=== PATIENT | female | born 1970 | race Caucasian/White ===

== ENCOUNTER 2019-12-27 22:15 | Emergency (ER) | payer MEDICAID, OTHER ==
[~2019-12-27] VITALS: Ht 165.1 cm; Wt 78.9 kg
[2019-12-27 22:39] LABS: CLARITY,URINE CLEAR; COLOR,URINE YELLOW
[2019-12-27 22:40] LABS: BILIRUBIN,URINE NEGATIVE (NEGATIVE); GLUCOSE, URINE (UA) NEGATIVE (NEGATIVE); KETONES,URINE TRACE (NEGATIVE); LEUKOCYTE ESTERASE ,URINE NEGATIVE (NEGATIVE); NITRITE,URINE NEGATIVE (NEGATIVE); PROTEIN,URINE NEGATIVE (NEGATIVE); RBC,URINE 25-50 /HPF
[2019-12-27 22:49] LABS: WHITE BLOOD COUNT 9.4 10^3/uL (4.3-11.0)
[2019-12-27 22:49] LABS: AMPHETAMINE SCREEN, URINE NEGATIVE (NEGATIVE); BARBITURATE SCREEN URINE NEGATIVE (NEGATIVE); BENZODIAZEPINES SCREEN URINE NEGATIVE (NEGATIVE); CANNABINOID SCREEN, URINE NEGATIVE (NEGATIVE); COCAINE SCREEN URINE NEGATIVE (NEGATIVE); METHADONE STAT NEGATIVE (NEGATIVE); METHAMPHETAMINE SCREEN URINE S NEGATIVE (NEGATIVE); OPIATE SCREEN URINE NEGATIVE (NEGATIVE); OXYCODONE STAT NEGATIVE (NEGATIVE); PROPOXYPHENE STAT NEGATIVE (NEGATIVE); TRICYCLIC ANTIDEPRESSANTS SCRE NEGATIVE (NEGATIVE)
[2019-12-27 22:50] LABS: BASOPHILS # (AUTO) 0.1 10^3/uL (0.0-0.1); BASOPHILS % (AUTO) 1 % (0-10); EOSINOPHILS # (AUTO) 0.1 10^3/uL (0.0-0.3); EOSINOPHILS % (AUTO) 1 % (0-10); HEMATOCRIT 45 % (35-52); HEMOGLOBIN 15.2 G/DL (11.5-16.0); LYMPHOCYTES # (AUTO) 2.3 X 10^3 (1.0-4.0); LYMPHOCYTES % (AUTO) 24 % (12-44); MEAN CORPUSCULAR HEMOGLOBIN 31 PG (25-34); MEAN CORPUSCULAR HGB CONC 34 G/DL (32-36); MEAN CORPUSCULAR VOLUME 92 FL (80-99); MEAN PLATELET VOLUME 10.2 FL (7.4-10.4); MONOCYTES # (AUTO) 0.7 X 10^3 (0.0-1.0); MONOCYTES % (AUTO) 7 % (0-12); NEUTROPHILS # (AUTO) 6.3 X 10^3 (1.8-7.8); NEUTROPHILS % (AUTO) 66 % (42-75); PLATELET COUNT 263 10^3/uL (130-400); RED CELL DISTRIBUTION WIDTH 13.2 % (10.0-14.5)
[2019-12-27] MEDS ORDERED: NS IV 1000 ML 1,000 ML IV STA (23:04)
[2019-12-27] MEDS ORDERED: ONDANSETRON 4 MG/2 ML (SDV) Z0FRAN IVP STA (23:04)
[2019-12-27] MEDS ORDERED: KETOROLAC 30 MG/ML VIAL IVP STA (23:04)
[2019-12-27 23:05] LABS: ALANINE AMINOTRANSFERASE 14 U/L (0-55); ALBUMIN 4.6 GM/DL (3.2-4.5); ALKALINE PHOSPHATASE 115 U/L (40-136); BILIRUBIN,TOTAL 0.4 MG/DL (0.1-1.0); BUN/CREATININE RATIO 16; CALCIUM 9.8 MG/DL (8.5-10.1); CARBON DIOXIDE 28 MMOL/L (21-32); CHLORIDE 105 MMOL/L (98-107); CREATININE SERUM 1.08 MG/DL (0.60-1.30); GFR ESTIMATED 54; GLUCOSE 112 MG/DL (70-105); LIPASE 38 U/L (8-78); POTASSIUM 4.6 MMOL/L (3.6-5.0); SODIUM 143 MMOL/L (135-145); TOTAL PROTEIN 7.6 GM/DL (6.4-8.2)
--- NOTE | 2019-12-27 23:12 | ED General ---
General Chief Complaint: Back Problems Stated Complaint: LOWER BACK PAIN Nursing Triage Note: PT. C/O RIGHT LOWER BACK FLANK PAIN. SHE REPORTS HAVING VAGINAL PRESSURE. PT. STATED SHE VOMITED OVER THE WEEKEND. PT. STATED SHE WAS SICK, FELL AND PASSED OUT FROM PAIN AND HIT HER HEAD AT 2044 TODAY. Nursing Sepsis Screen: No Definite Risk Source of Information: Patient History of Present Illness Date Seen by Provider: Dec 27, 2019 Time Seen by Provider: 22:47 Initial Comments 49-year-old female presenting with complaints of vaginal pressure and right flank pain. She has had this since the weekend but it was more severe tonight. The pain was so severe that she passed out around 8:45 PM. She had noticed blood when she went to the bathroom to urinate this evening. She does have a history of kidney stones and thinks that some of this pain may be related to that. She was concerned that she may have had a urinary tract infection as well. She denies any fever or chills. She was feeling nauseated along with the pain. She has had no diarrhea. She has no cough or congestion. Allergies and Home Medications Allergies Coded Allergies: No Known Drug Allergies (Unverified , 12/27/19) Home Medications Hydrocodone/Acetaminophen 1 Each Tablet, 1 TAB PO Q6H PRN for PAIN-SEVERE (8-10) Prescribed by: KATHYA JASMINE on 12/28/19 0048 Tamsulosin HCl 0.4 Mg Cap, 0.4 MG PO DAILY Prescribed by: KATHYA JASMINE on 12/28/19 0047 Patient Home Medication List Home Medication List Reviewed: Yes Review of Systems Review of Systems Constitutional: No chills, No diaphoresis, No fever, No malaise EENTM: No ear discharge, No blurred vision, No vision loss, No mouth pain, No epistaxis, No nose congestion Respiratory: No cough Cardiovascular: No chest pain Gastrointestinal: abdominal pain (right flank pain); No diarrhea; nausea Genitourinary: No dysuria; hematuria (and vaginal pressure and hematuria) Musculoskeletal: back pain (and right flank pain tonight that was very severe and has been off and on since this weekend) Skin: no symptoms reported Psychiatric/Neurological: Anxiety, Headache (mild frontal headache since passing out tonight) Past Hqlbamt-Mqjdvx-Hwjmjm Hx Past Med/Social Hx: Reviewed Nursing Past Med/Soc Hx Patient Social History Recent Foreign Travel: No Contact w/Someone Who Travel: No Recent Infectious Disease Expo: No Recent Hopitalizations: No Physical Abuse: No Sexual Abuse: No Mistreated: No Fear: No Seasonal Allergies Seasonal Allergies: No Past Medical History Surgeries: Yes Hysterectomy Respiratory: No Cardiac: No 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 oz. kg; 28.00 BMI Method: General Appearance: WD/WN, Moderate Distress HEENT: PERRL/EOMI, Normal ENT Inspection, Pharynx Normal Neck: Full Range of Motion, Normal Inspection, Non Tender, Supple Respiratory: Chest Non Tender, Lungs Clear, Normal Breath Sounds, No Accessory Muscle Use, No Respiratory Distress Cardiovascular: Regular Rate, Rhythm, Normal Peripheral Pulses Gastrointestinal: Normal Bowel Sounds, No Pulsatile Mass, Non Tender, Soft Back: No Vertebral Tenderness, CVA Tenderness (R) Extremity: Normal Capillary Refill, Normal Inspection, Normal Range of Motion, No Pedal Edema Neurologic/Psychiatric: Alert, Oriented x3, No Motor/Sensory Deficits, Normal M ood/Affect, medical office assistant II-XII Norm as Tested Skin: Normal Color, Warm/Dry Progress/Results/Core Measures Suspected Sepsis Recent Fever Within 48 Hours: No Infection Criteria Present: None New/Unexplained Altered Menta: No Sepsis Screen: No Definite Risk SIRS Temperature: Pulse: 110 Respiratory Rate: 20 Laboratory Tests 12/27/19 22:35: White Blood Count 9.4 Blood Pressure 119 /78 Mean: 92 Laboratory Tests 12/27/19 22:35: Creatinine 1.08, Platelet Count 263, Total Bilirubin 0.4 Results/Orders Lab Results Laboratory Tests Test 12/27/19 22:20 12/27/19 22:35 Range/Units Urine Color YELLOW Urine Clarity CLEAR Urine pH 6.0 5-9 Urine Specific Carver 1.025 H 1.016-1.022 Urine Protein NEGATIVE NEGATIVE Urine Glucose (UA) NEGATIVE NEGATIVE Urine Ketones TRACE H NEGATIVE Urine Nitrite NEGATIVE NEGATIVE Urine Bilirubin NEGATIVE NEGATIVE Urine Urobilinogen 1.0 < = 1.0 MG/DL Urine Leukocyte Esterase NEGATIVE NEGATIVE Urine RBC (Auto) 3+ H NEGATIVE Urine RBC 25-50 H /HPF Urine WBC NONE /HPF Urine Squamous Epithelial Cells 2-5 /HPF Urine Crystals NONE /LPF Urine Bacteria NONE /HPF Urine Casts NONE /LPF Urine Mucus SMALL H /LPF Urine Culture Indicated NO Urine Opiates Screen NEGATIVE NEGATIVE Urine Oxycodone Screen NEGATIVE NEGATIVE Urine Methadone Screen NEGATIVE NEGATIVE Urine Propoxyphene Screen NEGATIVE NEGATIVE Urine Barbiturates Screen NEGATIVE NEGATIVE Ur Tricyclic Antidepressants Screen NEGATIVE NEGATIVE Urine Phencyclidine Screen NEGATIVE NEGATIVE Urine Amphetamines Screen NEGATIVE NEGATIVE Urine Methamphetamines Screen NEGATIVE NEGATIVE Urine Benzodiazepines Screen NEGATIVE NEGATIVE Urine Cocaine Screen NEGATIVE NEGATIVE Urine Cannabinoids Screen NEGATIVE NEGATIVE White Blood Count 9.4 4.3-11.0 10^3/uL Red Blood Count 4.93 4.35-5.85 10^6/uL Hemoglobin 15.2 11.5-16.0 G/DL Hematocrit 45 35-52 % Mean Corpuscular Volume 92 80-99 FL Mean Corpuscular Hemoglobin 31 25-34 PG Mean Corpuscular Hemoglobin Concent 34 32-36 G/DL Red Cell Distribution Width 13.2 10.0-14.5 % Platelet Count 263 130-400 10^3/uL Mean Platelet Volume 10.2 7.4-10.4 FL Neutrophils (%) (Auto) 66 42-75 % Lymphocytes (%) (Auto) 24 12-44 % Monocytes (%) (Auto) 7 0-12 % Eosinophils (%) (Auto) 1 0-10 % Basophils (%) (Auto) 1 0-10 % Neutrophils # (Auto) 6.3 1.8-7.8 X 10^3 Lymphocytes # (Auto) 2.3 1.0-4.0 X 10^3 Monocytes # (Auto) 0.7 0.0-1.0 X 10^3 Eosinophils # (Auto) 0.1 0.0-0.3 10^3/uL Basophils # (Auto) 0.1 0.0-0.1 10^3/uL Sodium Level 143 135-145 MMOL/L Potassium Level 4.6 3.6-5.0 MMOL/L Chloride Level 105 98-107 MMOL/L Carbon Dioxide Level 28 21-32 MMOL/L Anion Gap 10 5-14 MMOL/L Blood Urea Nitrogen 17 7-18 MG/DL Creatinine 1.08 0.60-1.30 MG/DL Estimat Glomerular Filtration Rate 54 BUN/Creatinine Ratio 16 Glucose Level 112 H 70-105 MG/DL Calcium Level 9.8 8.5-10.1 MG/DL Corrected Calcium 8.5-10.1 MG/DL Total Bilirubin 0.4 0.1-1.0 MG/DL Aspartate Amino Transf (AST/SGOT) 19 5-34 U/L Alanine Aminotransferase (ALT/SGPT) 14 0-55 U/L Alkaline Phosphatase 115 40-136 U/L Total Protein 7.6 6.4-8.2 GM/DL Albumin 4.6 H 3.2-4.5 GM/DL Lipase 38 8-78 U/L Serum Alcohol < 10 <10 MG/DL My Orders Orders - KATHYA JASMINE MD Ua Culture If Indicated (12/27/19 22:24) Comprehensive Metabolic Panel (12/27/19 22:25) Lipase (12/27/19 22:25) Ed Iv/Invasive Line Start (12/27/19 22:25) Cbc With Automated Diff (12/27/19 22:25) Drug Screen Stat (Urine) (12/27/19 22:25) Alcohol (12/27/19 22:25) Ns Iv 1000 Ml (Sodium Chloride 0.9%) (12/27/19 23:04) Ketorolac Injection (Toradol Injection) (12/27/19 23:04) Ondansetron Injection (Zofran Injectio (12/27/19 23:04) Ct Head Wo (12/27/19 23:04) Ct Abd/Pelvis Wo(Kidney Stone) (12/27/19 23:04) Tamsulosin Capsule (Flomax Capsule) (12/27/19 23:42) Fentanyl Injection (Sublimaze Injection (12/27/19 23:42) Rx-Hydrocodone/Apap 5-325 Mg (Rx-Vicodin (12/28/19 01:00) Strain Urine (12/28/19 00:49) Vital Signs/I&O 12/27/19 12/28/19 22:20 00:44 Temp 36.0 36.4 Pulse 110 84 Resp 20 16 B/P (MAP) 119/78 (92) 118/65 Pulse Ox 95 97 O2 Delivery Room Air Room Air Capillary Refill : Less Than 3 Seconds Blood Pressure Mean: 92 Progress Note #1: Progress Note Obtain labs and urine. Check a CT scan of her head to look for signs of intracranial bleed or skull fracture and abdomen and pelvis to look for kidney stones. Give IV fluids for hydration, Toradol for pain, Zofran for nausea Progress Note #2: Progress Note Labs show no acute significant abnormality on CBC or chemistry. Her urinalysis showed elevated specific gravity of 1.025. She did have blood in her urine consistent with kidney stones. There was no sign of infection. Patient reports her symptoms were improved after treatment in the ED, but she was starting to have pain again and so dose of fentanyl was given. Awaiting CT scan reports of head and abdomen pelvis Progress Note #3: Progress Note CT scan of abdomen and pelvis shows bilateral kidney stones but nothing in the ureters. The CT head shows no acute significant abnormality. Patient's pain continues to be improved and she has tolerated oral intake here in the ED. Will discharge on hydrocodone and Flomax. Counseled on follow-up and return precautions. Diagnostic Imaging Diagonstic Imaging: CT Plain Films/CT/US/NM/MRI: head Comments No acute intracranial pathology seen Read by Dr. Daniel Post MD at 2334 and faxed at [phone] Reviewed: Reviewed Night [facility] Study Diagonstic Imaging: CT Plain Films/CT/US/NM/MRI: abdomen, pelvis Comments No acute findings. Nonobstructive bilateral nephrolithiasis. Read by Dr. Daniel Post MD at 2334 and faxed at [phone] Departure Impression Primary Impression: Renal colic on right side Additional Impressions: Bilateral kidney stones Syncope Qualified Codes: R55 - Syncope and collapse Disposition: HOME, SELF-CARE Condition: Improved Departure-Patient Inst. Decision time for Depature: 00:36 Referrals: LATIA CARRION MD [facility] Patient Instructions: Kidney Stones (DC), Renal Colic (DC), Syncope (Fainting) (DC), Vasovagal Response (DC), Kidney Stone Diet, How to Strain Your Urine Add. Discharge Instructions: Stay well hydrated and drink plenty of water. Take the Flomax to help make it easier to pass kidney stones. Use the pain medicine to help control recurrent pain. Follow up with Urology for continued problems with kidney stones. Strain your urine to see when you pass a stone All discharge instructions reviewed with patient and/or family. Voiced understanding. Scripts Hydrocodone/Acetaminophen (Hydrocodone/Acetaminophen 5 MG/325 MG TAB) 1 Each Tablet 1 TAB PO Q6H PRN for PAIN-SEVERE (8-10) MDD 10 TABS for 3 Days, #12 TAB 0 Refills Prov: KATHYA JASMINE MD 12/28/19 Tamsulosin HCl (Flomax) 0.4 Mg Cap 0.4 MG PO DAILY for renal colic for 7 Days, #7 CAP 0 Refills Prov: KATHYA JASMINE MD 12/28/19 KATHYA JASMINE MD Dec 27, 2019 23:12
[2019-12-27] MEDS ORDERED: fentaNYL INJECTION 100 MCG/2 ML AMP IVP STA (23:42)
[2019-12-27] MEDS ORDERED: TAMSULOSIN 0.4 MG (FLOMAX) CAP PO STA (23:42)
--- NOTE | 2019-12-28 00:11 | NUR ---
PT. REPORTED HER PAIN HAS IMPROVED.
[2019-12-28 00:44] VITALS: BP 118/65
[2019-12-28] MEDS ORDERED: HYDR-4226 PO (00:47)
[2019-12-28] MEDS ORDERED: TMSL.4C PO (00:47)
--- NOTE | 2019-12-28 00:50 | NUR ---
PT. WAS GIVEN A STRAINER TO TAKE HOME.
[2019-12-28] MEDS ORDERED: RX-HYDROCODONE/APAP 5/325 MG #4 TAB PK PO PRN (01:00)
--- NOTE | 2019-12-28 06:21 | Diagnostic Imaging Report ---
PROCEDURE: CT head without contrast. TECHNIQUE: Multiple contiguous axial images were obtained through the brain without the use of intravenous contrast. Auto Exposure Controls were utilized during the CT exam to meet ALARA standards for radiation dose reduction. INDICATION: Syncope The ventricles are normal in size, shape and position. There are no masses or hemorrhages. There are no extra-axial fluid collections. IMPRESSION: Negative CT head I agree with preliminary interpretation. Dictated by: Dictated on workstation # [id number]
--- NOTE | 2019-12-28 07:05 | Diagnostic Imaging Report ---
PROCEDURE: CT urinary tract, rule out kidney stone. TECHNIQUE: Multiple contiguous axial images were obtained through the abdomen and pelvis without the use of intravenous contrast. Auto Exposure Controls were utilized during the CT exam to meet ALARA standards for radiation dose reduction. INDICATION: Right low back and flank pain. Vaginal pressure. Vomiting over the weekend. EXAMINATION: CT of the abdomen and pelvis without contrast dated 12/27/2019. FINDINGS: The visualized lung bases are clear. There is no acute osseous abnormality. The nonopacified abdominal viscera limited due to the lack of IV contrast. However, no acute abnormality is appreciated within the liver, spleen, gallbladder, adrenal glands or pancreas. Very small pericardial effusion is noted. There is a likely small hiatal hernia. There are multiple nonobstructive stones in both kidneys. There are no ureteral stones on either side. No hydronephrosis. There is a nonspecific low density lesion inferior pole of the right kidney poorly characterized without contrast and could be better characterized sonographically with postcontrast imaging as clinically indicated. There is no ascites. No free air. Findings of mild constipation noted. Several minimally prominent but nonenlarged lymph nodes in the right lower quadrant are noted and may be normal for patient. Mesenteric adenitis could cause a similar appearance and clinical correlation with symptoms recommended. This is not mentioned by the preliminary report but is not considered emergent finding. No free fluid seen in the pelvis. IMPRESSION: 1. Minimally prominent lymph nodes in the right lower quadrant please see above discussion. Remaining examination is unremarkable other than bilateral nonobstructive stones and a low-density lesion in the right kidney. See above discussion and recommendations. Dictated by: Dictated on workstation # [id number]
--- OUTSIDE RECORDS SUMMARY | 2019-12-30 00:28 | XMS REPORT | Continuity of Care Document ---
Author Organization Unknown Address Unknown Phone Unavailable Allergies Active Description Code Type Severity Reaction Onset Reported/Identified Relationship to Patient Clinical Status Yes No Known Drug Allergies [id number] Drug Allergy Unknown N/A 12/27/2019 Medications There is no data. Problems There is no data. Procedures There is no data. Results Test Result Range LIPID PANEL - 02/10/19 12:00 CHOLESTEROL, TOTAL 197 mg/dL <200 HDL CHOLESTEROL 40 mg/dL >50 TRIGLYCERIDES 118 mg/dL <150 LDL-CHOLESTEROL 134 mg/dL (calc) NRG CHOL/HDLC RATIO 4.9 (calc) <5.0 NON HDL CHOLESTEROL 157 mg/dL (calc) <13 0 CMP - 02/10/19 12:00 GLUCOSE 83 mg/dL 65-99 UREA NITROGEN (BUN) 13 mg/dL 7-25 CREATININE 0.68 mg/dL 0.50-1.10 eGFR NON-AFR. [place] 105 mL/min/1.73m2 > OR = 60 eGFR 122 mL/min/1.73m2 > OR = 60 BUN/CREATININE RATIO NOT APPLICABLE (calc) 6-22 SODIUM 143 mmol/L 135-146 POTASSIUM 4.0 mmol/L 3.5-5.3 CHLORIDE 108 mmol/L 98-110 CARBON DIOXIDE 29 mmol/L 20-32 CALCIUM 9.1 mg/dL 8.6-10.2 PROTEIN, TOTAL 6.6 g/dL 6.1-8.1 ALBUMIN 4.1 g/dL 3.6-5.1 GLOBULIN 2.5 g/dL (calc) 1.9-3.7 ALBUMIN/GLOBULIN RATIO 1.6 (calc) 1.0-2. 5 BILIRUBIN, TOTAL 0.6 mg/dL 0.2-1.2 ALKALINE PHOSPHATASE 101 U/L 33-115 AST 28 U/L 10-35 ALT 37 U/L 6-29 Complete urinalysis with reflex to cultu re - 12/27/19 22:20 Urine color determination YELLOW NRG Urine clarity determination CLEAR NR G Urine pH measurement by test strip 6.0 5-9 Specific gravity of urine by test strip 1.025 1.016-1.022 Urine protein assay by test strip, semi-quantitative NEGATIVE NEGATIVE Urine glucose detection by automated test strip NE GATIVE NEGATIVE Erythrocytes detection in urine sediment by light micr oscopy 3+ NEGATIVE Urine ketones detection by automated test strip TR MARK NEGATIVE Urine nitrite detection by test strip NEGATIVE NEGATIVE Urine total bilirubin detection by test strip NEGA TIVE NEGATIVE Urine urobilinogen measurement by automated test strip (mass/volume) 1.0 mg/dL < = 1.0 Urine leukocyte esterase detection by dipstick NEG ATIVE NEGATIVE Automated urine sediment erythrocyte cou nt by microscopy (number/high power field) [HPF] NRG Automated urine sediment leukocyte count by microscopy (number/high power field) NONE NRG Bacteria detection in urine sediment by light microsco py NONE NRG Squamous epithelial cells detection in u rine sediment by light microscopy 2-5 NRG Crystals detection in urine sediment by light microsco py NONE NRG Casts detection in urine sediment by light microscopy NONE NRG Mucus detection in urine sediment by light microscopy SMALL NRG Complete urinalysis with reflex to culture NO NRG Urine drug screening test - 12/27/19 22: 20 Urine phencyclidine detection by screening method NEGATIVE NEGATIVE Urine benzodiazepines detection by screening method NEGATIVE NEGATIVE Urine cocaine detection NEGATIVE NEGATI VE Urine amphetamines detection by screening method N EGATIVE NEGATIVE Urine methamphetamine detection by screening method NEGATIVE NEGATIVE Urine cannabinoids detection by screening method N EGATIVE NEGATIVE Urine opiates detection by screening method NEGATI VE NEGATIVE Urine barbiturates detection NEGATIVE N EGATIVE Screening urine tricyclic antidepressants detection NEGATIVE NEGATIVE Urine methadone detection by screening method NEGA TIVE NEGATIVE Urine oxycodone detection NEGATIVE NEGA TIVE Urine propoxyphene detection NEGATIVE N EGATIVE Complete blood count (CBC) with automate d white blood cell (WBC) differential - 12/27/19 22:35 Blood leukocytes automated count (number/volume) 9.4 10*3/uL 4.3-11.0 Blood erythrocytes automated count (number/volume) 4.93 10*6/uL 4.35-5.85 Venous blood hemoglobin measurement (mass/volume) 15.2 g/dL 11.5-16.0 Blood hematocrit (volume fraction) 45 % 35-52 Automated erythrocyte mean corpuscular volume 92 [ foz_us] 80-99 Automated erythrocyte mean corpuscular h emoglobin (mass per erythrocyte) 31 pg 25-34 Automated erythrocyte mean corpuscular h emoglobin concentration measurement (mass/volume) 34 g/dL 32-36 Automated erythrocyte distribution width ratio 13. 2 % 10.0- 14.5 Automated blood platelet count (count/volume) 263 10*3/uL 130-400 Automated blood platelet mean volume measurement 10.2 [foz_us] 7.4-10.4 Automated blood neutrophils/100 leukocytes 66 % 42-75 Automated blood lymphocytes/100 leukocytes 24 % 12-44 Blood monocytes/100 leukocytes 7 % 0-12 Automated blood eosinophils/100 leukocytes 1 % 0-10 Automated blood basophils/100 leukocytes 1 % 0-10 Blood neutrophils automated count (number/volume) 6.3 10*3 1.8-7.8 Blood lymphocytes automated count (number/volume) 2.3 10*3 1.0-4.0 Blood monocytes automated count (number/volume) 0. 7 10*3 0.0-1.0 Automated eosinophil count 0.1 10*3/uL 0 .0-0.3 Automated blood basophil count (count/volume) 0.1 10*3/uL 0.0-0.1 Comprehensive metabolic panel - 12/27/19 22:35 Serum or plasma sodium measurement (moles/volume) 143 mmol/L 135-145 Serum or plasma potassium measurement (moles/volume) 4.6 mmol/L 3.6-5.0 Serum or plasma chloride measurement (moles/volume) 105 mmol/L 98-107 Carbon dioxide 28 mmol/L 21-32 Serum or plasma anion gap determination (moles/volume) 10 mmol/L 5-14 Serum or plasma urea nitrogen measurement (mass/volume ) 17 mg/dL 7-18 Serum or plasma creatinine measurement (mass/volume) 1.08 mg/dL 0.60-1.30 Serum or plasma urea nitrogen/creatinine mass ratio 16 NRG Serum or plasma creatinine measurement w ith calculation of estimated glomerular filtration rate 54 NRG Serum or plasma glucose measurement (mass/volume) 112 mg/dL 70-105 Serum or plasma calcium measurement (mass/volume) 9.8 mg/dL 8.5-10.1 Serum or plasma total bilirubin measurement (mass/volu me) 0.4 mg/dL 0.1-1.0 Serum or plasma alkaline phosphatase leonardo surement (enzymatic activity/volume) 115 U/L 40-136 Serum or plasma aspartate aminotransfera se measurement (enzymatic activity/volume) 19 U/L 5-34 Serum or plasma alanine aminotransferase measurement (enzymatic activity/volume) 14 U/L 0-55 Serum or plasma protein measurement (mass/volume) 7.6 g/dL 6.4-8.2 Serum or plasma albumin measurement (mass/volume) 4.6 g/dL 3.2-4.5 Lipase - 12/27/19 22:35 Lipase 38 U/L 8-78 Serum or plasma ethanol measurement (mas s/volume) - 12/27/19 22:35 Serum or plasma ethanol measurement (mass/volume) < mg/dL <10 Encounters ACCT No. Visit Date/Time Discharge Status Pt. Type Provider Facility Loc./Unit Complaint [id number] 06/22/2019 13:40:00 06/22/2019 23:59: 59 CLS Outpatient FELA PHILLIPS [facility] [id number] 02/10/2019 11:00:00 Document Registration [id number] 12/27/2019 22:17:00 020 00:54:00 DIS Emergency MITALI COLVIN, KATHYA Maloney [facility] ER FS LOWER BACK PAIN
--- OUTSIDE RECORDS SUMMARY | 2019-12-30 00:28 | XMS REPORT ---
Author Author Juliet SPARKS Organization [facility] Address [address] [place] [address] Care Team Providers Care Data Processing Specialist Name Role Phone DEBORAH SPARKS Unavailable PROBLEMS Unknown Problems ALLERGIES No Known Allergies ENCOUNTERS Encounter Location Date Diagnosis [facility] [address] [facility] [id number] [place], [place] [id number] Jul, Dental examination Z01.20 IMMUNIZATIONS No Known Immunizations SOCIAL HISTORY Never Assessed REASON FOR VISIT denton PLAN OF CARE Activity Details Follow Up prn Reason:PRASAD VITAL SIGNS Blood pressure systolic 122 mmHg 2017-08-02 Blood pressure diastolic 86 mmHg 2017-08-02 MEDICATIONS No Known Medications RESULTS No Results PROCEDURES Procedure Date Ordered Result Body Site LTD ORAL EVALUATION - PROBLEM FOCUS Aug 02, 2017 INTRAORL-PERIAPICAL 1 FILM [id number] Aug 12, 2017 BITEWING - SINGLE FILM Aug 02, 2017 INTRAORL-PERIAPICAL EA ADD FILM Aug 02, 2017 INSTRUCTIONS MEDICATIONS ADMINISTERED No Known Medications MEDICAL (GENERAL) HISTORY Type Description Date Medical History asthma
== END 2019-12-28 00:54 | disposition home or self-care (01) ==
LOC: ER FS 22:17
DX: N20.0 Calculus of kidney (principal); R55 Syncope and collapse; Z90.710 Acquired absence of both cervix and uterus
CPT/HCPCS: 36415; 70450; 74176; 80053; 80306; 80320; 81000; 83690; 85025

== ENCOUNTER 2020-04-25 16:45 | Emergency (ER) | payer OTHER ==
[~2020-04-25] VITALS: Ht 165.1 cm; Wt 78.9 kg
[~2020-04-25 16:45] MED LIST: HYDR-4226 PO; TMSL.4C PO
[2020-04-25] MEDS ORDERED: NS IV 1000 ML 1,000 ML IV SCH (17:15)
[2020-04-25] MEDS ORDERED: KETOROLAC 30 MG/ML VIAL IVP ONE (17:15)
[2020-04-25] MEDS ORDERED: ONDANSETRON 4 MG/2 ML (SDV) Z0FRAN IVP ONE (17:15)
[2020-04-25] MEDS ORDERED: morphine INJ 10 MG/ML 1ML (SYR OR VIAL) IVP STA (17:15)
[2020-04-25 17:35] LABS: CLARITY,URINE CLOUDY; COLOR,URINE DARK BROWN; GLUCOSE, URINE (UA) TRACE (NEGATIVE); KETONES,URINE TRACE (NEGATIVE); NITRITE,URINE NEGATIVE (NEGATIVE); PROTEIN,URINE 1+ (NEGATIVE)
[2020-04-25 17:36] LABS: BACTERIA,URINE FEW /HPF; BILIRUBIN,URINE 1+ (NEGATIVE); LEUKOCYTE ESTERASE ,URINE NEGATIVE (NEGATIVE); RBC,URINE TNTC /HPF
[2020-04-25 17:37] LABS: BASOPHILS % (AUTO) 1 % (0-10); EOSINOPHILS # (AUTO) 0.2 10^3/uL (0.0-0.3); EOSINOPHILS % (AUTO) 2 % (0-10); HEMATOCRIT 44 % (35-52); HEMOGLOBIN 14.7 G/DL (11.5-16.0); LYMPHOCYTES # (AUTO) 1.8 X 10^3 (1.0-4.0); LYMPHOCYTES % (AUTO) 20 % (12-44); MEAN CORPUSCULAR HEMOGLOBIN 31 PG (25-34); MEAN CORPUSCULAR HGB CONC 34 G/DL (32-36); MEAN CORPUSCULAR VOLUME 91 FL (80-99); MEAN PLATELET VOLUME 10.4 FL (7.4-10.4); MONOCYTES # (AUTO) 0.6 X 10^3 (0.0-1.0); MONOCYTES % (AUTO) 7 % (0-12); NEUTROPHILS # (AUTO) 6.5 X 10^3 (1.8-7.8); NEUTROPHILS % (AUTO) 71 % (42-75); PLATELET COUNT 248 10^3/uL (130-400); RED CELL DISTRIBUTION WIDTH 13.2 % (10.0-14.5); WHITE BLOOD COUNT 9.2 10^3/uL (4.3-11.0)
[2020-04-25 17:38] LABS: BASOPHILS # (AUTO) 0.1 10^3/uL (0.0-0.1)
--- NOTE | 2020-04-25 17:38 | ED General ---
General Chief Complaint: Abdominal/GI Problems Stated Complaint: FEMALE REPRODUCTIVE PAIN,BLOOD IN URINE History of Present Illness Date Seen by Provider: Apr 25, 2020 Time Seen by Provider: 17:35 Initial Comments Patient presenting to emergency department for evaluation of left lower abdominal pain that radiates into her pelvic region and associated with nausea. She says that her pain started on Wednesday which would be 4 days ago now and she was seen in [place] and then they transferred her via private vehicle to [facility] and she had a workup done there which revealed a 5 mm left distal ureter calculus and was discharged on [place] and Flomax. Unfortunately her pain has returned and she says it is worse. She called [facility] and they told her to come to the closest emergency room. She appears uncomfortable but is nontoxic. Allergies and Home Medications Allergies Coded Allergies: No Known Drug Allergies (Unverified , 12/27/19) Home Medications Hydrocodone/Acetaminophen 1 Each Tablet, 1 TAB PO Q6H PRN for PAIN-SEVERE (8-10) Prescribed by: KATHYA JASMINE on 12/28/19 0048 Tamsulosin HCl 0.4 Mg Cap, 0.4 MG PO DAILY Prescribed by: KATHYA JASMINE on 12/28/19 0047 Patient Home Medication List Home Medication List Reviewed: Yes Review of Systems Review of Systems Constitutional: no symptoms reported EENTM: no symptoms reported Respiratory: no symptoms reported Cardiovascular: no symptoms reported Gastrointestinal: abdominal pain, nausea Genitourinary: hematuria Musculoskeletal: no symptoms reported Skin: no symptoms reported Psychiatric/Neurological: No Symptoms Reported All Other Systems Reviewed Negative Unless Noted: Yes Past Kgqunzw-Obboxt-Kmwrxs Hx Patient Social History Alcohol Use: Denies Use Recreational Drug Use: No Smoking Status: Unknown if Ever Smoked 2nd Hand Smoke Exposure: No Recent Foreign Travel: No Contact w/Someone Who Travel: No Recent Hopitalizations: No Physical Abuse: No Sexual Abuse: No Mistreated: No Fear: No Seasonal Allergies Seasonal Allergies: No Past Medical History Surgeries: Yes Hysterectomy Respiratory: No Cardiac: No 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 oz. kg; 28.00 BMI Method: General Appearance: No Apparent Distress, WD/WN, Anxious HEENT: PERRL/EOMI Neck: Supple Respiratory: No Respiratory Distress Cardiovascular: Regular Rate, Rhythm Gastrointestinal: Soft, Tenderness (diffuse lower abdomen) Back: Normal Inspection Extremity: Normal Capillary Refill Neurologic/Psychiatric: Alert, Oriented x3 Skin: Warm/Dry Progress/Results/Core Measures Suspected Sepsis SIRS Temperature: Pulse: Respiratory Rate: Laboratory Tests 04/25/20 17:25: White Blood Count 9.2 Blood Pressure / Mean: Laboratory Tests 04/25/20 17:25: Platelet Count 248 Results/Orders Lab Results Laboratory Tests Test 04/25/20 17:13 04/25/20 17:25 Range/Units Urine Color DARK BROWN Urine Clarity CLOUDY Urine pH 5.0 5-9 Urine Specific [place] >=1.030 1.016-1.022 Urine Protein 1+ H NEGATIVE Urine Glucose (UA) TRACE H NEGATIVE Urine Ketones TRACE H NEGATIVE Urine Nitrite NEGATIVE NEGATIVE Urine Bilirubin 1+ H NEGATIVE Urine Urobilinogen 2.0 < = 1.0 MG/DL Urine Leukocyte Esterase NEGATIVE NEGATIVE Urine RBC (Auto) 3+ H NEGATIVE Urine RBC TNTC H /HPF Urine WBC NONE /HPF Urine Squamous Epithelial Cells 5-10 /HPF Urine Renal Epithelial Cells NONE /HPF Urine Crystals NONE /LPF Urine Bacteria FEW H /HPF Urine Casts NONE /LPF Urine Mucus NEGATIVE /LPF Urine Culture Indicated YES Urine Test NEGATIVE NEGATIVE White Blood Count 9.2 4.3-11.0 10^3/uL Red Blood Count 4.77 4.35-5.85 10^6/uL Hemoglobin 14.7 11.5-16.0 G/DL Hematocrit 44 35-52 % Mean Corpuscular Volume 91 80-99 FL Mean Corpuscular Hemoglobin 31 25-34 PG Mean Corpuscular Hemoglobin Concent 34 32-36 G/DL Red Cell Distribution Width 13.2 10.0-14.5 % Platelet Count 248 130-400 10^3/uL Mean Platelet Volume 10.4 7.4-10.4 FL Neutrophils (%) (Auto) 71 42-75 % Lymphocytes (%) (Auto) 20 12-44 % Monocytes (%) (Auto) 7 0-12 % Eosinophils (%) (Auto) 2 0-10 % Basophils (%) (Auto) 1 0-10 % Neutrophils # (Auto) 6.5 1.8-7.8 X 10^3 Lymphocytes # (Auto) 1.8 1.0-4.0 X 10^3 Monocytes # (Auto) 0.6 0.0-1.0 X 10^3 Eosinophils # (Auto) 0.2 0.0-0.3 10^3/uL Basophils # (Auto) 0.1 0.0-0.1 10^3/uL My Orders Orders - SKIP WHITMAN DO Cbc With Automated Diff (04/25/20 17:15) Comprehensive Metabolic Panel (04/25/20 17:15) Ua Culture If Indicated (04/25/20 17:15) Hcg,Qualitative Urine (04/25/20 17:15) Iv/Invasive Line Insertion .IV start (04/25/20 17:15) Ns Iv 1000 Ml (Sodium Chloride 0.9%) (04/25/20 17:15) Ondansetron Injection (Zofran Injectio (04/25/20 17:15) Ketorolac Injection (Toradol Injection) (04/25/20 17:15) Morphine Injection (Morphine Injection (04/25/20 17:15) Ct Abdomen/Pelvis Wo (04/25/20 17:15) Urine Culture (04/25/20 17:13) Medications Given in ED Current Medications Medications Dose Ordered Sig/Temitope Route Start Time Stop Time Status Last Admin Dose Admin Ketorolac Tromethamine 15 mg ONCE ONCE IVP 04/25/20 17:15 04/25/20 17:18 DC 04/25/20 17:39 15 MG Ondansetron HCl 4 mg ONCE ONCE IVP 04/25/20 17:15 04/25/20 17:18 DC 04/25/20 17:39 4 MG Vital Signs/I&O Capillary Refill : Progress Note : Progress Note Patient has failed outpatient treatment for her kidney stone and I spoke to our urologist on-call here Dr. Castrejon and he is leaving town tomorrow morning and would not be able to take care of her at [place]. I then asked the patient where she would like to go for her intractable pain and she may need urologic consultation and intervention and she said she would like to go back to [facility]. I spoke to Dr. Coombs at [facility] and they're willing to accept her for transfer. I recommended EMS transfer is that she could continue monitored and pain control but she refused saying that her insurance does not cover transfers and is requesting private vehicle transfer. She said a friend we transfer her. She accepted the risks of poor outcomes by transporting against my recommendations and she accepted the risks of and disability. Patient's pain will be better controlled and then all records will be sent with her. Departure Impression Primary Impression: Intractable abdominal pain Additional Impression: Left ureteral calculus Disposition: XFER SHT-TRM HOSP Condition: Improved Transfer Transfer Reason: Exceeds level of care Transfer Facility: [facility], Dr. Coombs accepting Method of Transfer: Private Vehicle Departure-Patient Inst. Referrals: NO,LOCAL PHYSICIAN (PCP) Primary Care Physician ELIZABETH LUNSFORD APRN (Family) Primary Care Physician SKIP WHITMAN DO Apr 25, 2020 17:38
[2020-04-25 17:51] LABS: CHLORIDE 107 MMOL/L (98-107); POTASSIUM 3.7 MMOL/L (3.6-5.0); SODIUM 144 MMOL/L (135-145)
[2020-04-25 17:52] LABS: ALANINE AMINOTRANSFERASE 16 U/L (0-55); ALBUMIN 4.3 GM/DL (3.2-4.5); ALKALINE PHOSPHATASE 104 U/L (40-136); BILIRUBIN,TOTAL 0.4 MG/DL (0.1-1.0); CALCIUM 9.4 MG/DL (8.5-10.1); CARBON DIOXIDE 27 MMOL/L (21-32); GLUCOSE 113 MG/DL (70-105)
[2020-04-25 18:02] LABS: BUN/CREATININE RATIO 16; CREATININE SERUM 0.96 MG/DL (0.60-1.30); GFR ESTIMATED > 60
--- NOTE | 2020-04-25 18:24 | Diagnostic Imaging Report ---
PROCEDURE: CT abdomen and pelvis without contrast. TECHNIQUE: Multiple contiguous axial images were obtained through the abdomen and pelvis without the use of intravenous contrast. Auto Exposure Controls were utilized during the CT exam to meet ALARA standards for radiation dose reduction. INDICATION: Lower abdominal pain x 1 week. FINDINGS: The previous CT abdomen/pelvis exam of 12/27/2019 noted nonobstructive calculi within both kidneys but failed to show any evidence for obstruction of either collecting system. On this exam, however, there is now a small, 4.4 mm, calculus in the distal left ureter approximately 1-2 cm from the ureterovesical junction. The ureter proximal to the calculus is dilated as is the left renal pelvis. This would be consistent with obstruction of the left collecting system due to the aforementioned calculus. There is no evidence for nephrolithiasis on the left. The nonobstructive calculus in the right kidney, seen previously, is essentially no different and there is no sign of obstruction of the right collecting system. There is no acute abnormality of the abdomen or pelvis noted otherwise. The liver, spleen, pancreas, gallbladder, adrenals, aorta and inferior vena cava show no evidence for an acute injury. Stomach is filled with particulate matter. The appendix is not well visualized but there are no indirect signs of acute appendicitis. There is no pelvic mass or free fluid collection evident. The uterus is surgically absent. The bone windows show no sign of a fracture or of a destructive lesion. The lung bases are clear. IMPRESSION: 1. There is partial obstruction of the left collecting system due to a 4.4 mm calculus in the distal left ureter. 2. There is no acute abnormality of the abdomen or pelvis noted otherwise. Dictated by: Dictated on workstation # [id number]
[2020-04-25 18:56] VITALS: BP 107/78
--- OUTSIDE RECORDS SUMMARY | 2020-04-25 20:35 | XMS REPORT | Continuity of Care Document ---
Author Organization Unknown Address Unknown Phone Unavailable Allergies Active Description Code Type Severity Reaction Onset Reported/Identified Relationship to Patient Clinical Status Yes No Known Drug Allergies [id number] Drug Allergy Unknown N/A 12/27/2019 Medications There is no data. Problems Date Dx Coded Attending Type Code Diagnosis Diagnosed By 12/28/2019 KATHYA JASMINE MD, Ot M54.5 LOW BACK PAIN 12/28/2019 KATHYA JASMINE MD, Ot N20.0 CALCULUS OF KIDNEY 12/28/2019 KATHYA JASMINE MD, Ot R55 SYNCOPE AND COLLAPSE 12/28/2019 KATHYA JASMINE MD, Ot Z90.7 10 ACQUIRED ABSENCE OF BOTH CERVIX AND UTER Procedures There is no data. Results Test [...] 7-25 CREATININE 0.68 mg/dL 0.50-1.10 eGFR NON-AFR. CHINESE 105 mL/min/1.73m2 > OR = 60 eGFR [...] plasma ethanol measurement (mass/volume) < mg/dL <10 Urine beta human chorionic gonadotropin (hCG) measurement - 04/25/20 17:13 Urine beta human chorionic gonadotropin (hCG) measurem ent NEGATIVE NEGATIVE Complete urinalysis with reflex to cultu re - 04/25/20 17:13 Urine color determination DARK BROWN NR G Urine clarity determination CLOUDY NR G Urine pH measurement by test strip 5.0 5-9 Specific gravity of urine by test strip >= 1.016-1.022 Urine protein assay by test strip, semi-quantitative 1+ NEGATIVE Urine glucose detection by automated test strip TR MARK NEGATIVE Erythrocytes detection in urine sediment by light micr oscopy 3+ NEGATIVE Urine ketones detection by automated test strip TR MARK NEGATIVE Urine nitrite detection by test strip NEGATIVE NEGATIVE Urine total bilirubin detection by test strip 1+ NEGATIVE Urine urobilinogen measurement by automated test strip (mass/volume) 2.0 mg/dL < = 1.0 Urine leukocyte esterase detection by dipstick NEG ATIVE NEGATIVE Automated urine sediment erythrocyte cou nt by microscopy (number/high power field) TNTC NRG Automated urine sediment leukocyte count by microscopy (number/high power field) NONE NRG Bacteria detection in urine sediment by light microsco py FEW NRG Squamous epithelial cells detection in u rine sediment by light microscopy 5-10 NRG Crystals detection in urine sediment by light microsco py NONE NRG Casts detection in urine sediment by light microscopy NONE NRG Mucus detection in urine sediment by light microscopy NEGATIVE NRG Complete urinalysis with reflex to culture YES NRG Renal epithelial cells detection in urin e sediment by light microscopy NONE NRG Complete blood count (CBC) with automate d white blood cell (WBC) differential - 04/25/20 17:25 Blood leukocytes automated count (number/volume) 9.2 10*3/uL 4.3-11.0 Blood erythrocytes automated count (number/volume) 4.77 10*6/uL 4.35-5.85 Venous blood hemoglobin measurement (mass/volume) 14.7 g/dL 11.5-16.0 Blood hematocrit (volume fraction) 44 % 35-52 Automated erythrocyte mean corpuscular volume 91 [ foz_us] 80-99 Automated erythrocyte mean corpuscular h emoglobin (mass per erythrocyte) 31 pg 25-34 Automated erythrocyte mean corpuscular h emoglobin concentration measurement (mass/volume) 34 g/dL 32-36 Automated erythrocyte distribution width ratio 13. 2 % 10.0- 14.5 Automated blood platelet count (count/volume) 248 10*3/uL 130-400 Automated blood platelet mean volume measurement 10.4 [foz_us] 7.4-10.4 Automated blood neutrophils/100 leukocytes 71 % 42-75 Automated blood lymphocytes/100 leukocytes 20 % 12-44 Blood monocytes/100 leukocytes 7 % 0-12 Automated blood eosinophils/100 leukocytes 2 % 0-10 Automated blood basophils/100 leukocytes 1 % 0-10 Blood neutrophils automated count (number/volume) 6.5 10*3 1.8-7.8 Blood lymphocytes automated count (number/volume) 1.8 10*3 1.0-4.0 Blood monocytes automated count (number/volume) 0. 6 10*3 0.0-1.0 Automated eosinophil count 0.2 10*3/uL 0 .0-0.3 Automated blood basophil count (count/volume) 0.1 10*3/uL 0.0-0.1 Comprehensive metabolic panel - 04/25/20 17:25 Serum or plasma sodium measurement (moles/volume) 144 mmol/L 135-145 Serum or plasma potassium measurement (moles/volume) 3.7 mmol/L 3.6-5.0 Serum or plasma chloride measurement (moles/volume) 107 mmol/L 98-107 Carbon dioxide 27 mmol/L 21-32 Serum or plasma anion gap determination (moles/volume) 10 mmol/L 5-14 Serum or plasma urea nitrogen measurement (mass/volume ) 15 mg/dL 7-18 Serum or plasma creatinine measurement (mass/volume) 0.96 mg/dL 0.60-1.30 Serum or plasma urea nitrogen/creatinine mass ratio 16 NRG Serum or plasma creatinine measurement w ith calculation of estimated glomerular filtration rate > NRG Serum or plasma glucose measurement (mass/volume) 113 mg/dL 70-105 Serum or plasma calcium measurement (mass/volume) 9.4 mg/dL 8.5-10.1 Serum or plasma total bilirubin measurement (mass/volu me) 0.4 mg/dL 0.1-1.0 Serum or plasma alkaline phosphatase leonardo surement (enzymatic activity/volume) 104 U/L 40-136 Serum or plasma aspartate aminotransfera se measurement (enzymatic activity/volume) 18 U/L 5-34 Serum or plasma alanine aminotransferase measurement (enzymatic activity/volume) 16 U/L 0-55 Serum or plasma protein measurement (mass/volume) 7.0 g/dL 6.4-8.2 Serum or plasma albumin measurement (mass/volume) 4.3 g/dL 3.2-4.5 CALCIUM CORRECTED 9.2 mg/dL 8.5-10.1 Encounters ACCT No. Visit Date/Time Discharge Status Pt. Type Provider Facility Loc./Unit Complaint [id number] 04/03/2020 11:00:00 04/03/2020 23:59: 59 CLS Outpatient ELIZABETH LUNSFORD [facility] [id number] 02/10/2019 11:00:00 Document Registration [id number] 12/27/2019 22:17:00 020 00:54:00 DIS Emergency MITALI COLVIN, KATHYA [facility] ER FS LOWER BACK PAIN [id number] 04/25/2020 17:27:00 Document Registration
== END 2020-04-25 18:56 | disposition short-term general hospital (02) ==
LOC: EDUNIT# 16:45 → ER FS 16:47
DX: N20.1 Calculus of ureter (principal)
CPT/HCPCS: 36415; 74176; 80053; 81000; 84703; 85025; 87088

== ENCOUNTER 2020-06-10 09:46 | Emergency (ER) | payer OTHER ==
[~2020-06-10] VITALS: Ht 165.1 cm; Wt 78.6 kg
--- NOTE | 2020-06-10 10:12 | ED GI ---
General Chief Complaint: Abdominal/GI Problems Stated Complaint: LRQ PAIN; VOMITING Source of Information: Patient Exam Limitations: No Limitations History of Present Illness Date Seen by Provider: Jun 10, 2020 Time Seen by Provider: 10:05 Initial Comments 49-year-old female presents with onset of right flank and right lower abdominal pain beginning 2 days ago rather suddenly. Pain is waxing and waning since then and was worse this morning. Patient states history of kidney stones and earlier this month she was at [facility] for a stone removal on her left side. States that she's had many kidney stones. Took Toradol by mouth at home today without any relief. Denies any drug allergies. Allergies and Home Medications Allergies Coded Allergies: No Known Drug Allergies (Unverified , 12/27/19) Home Medications Hydrocodone/Acetaminophen 1 Each Tablet, 1 TAB PO Q6H PRN for PAIN-SEVERE (8-10) Prescribed by: KATHYA JASMINE on 12/28/19 0048 Tamsulosin HCl 0.4 Mg Cap, 0.4 MG PO DAILY Prescribed by: KATHYA JASMINE on 12/28/19 0047 Patient Home Medication List Home Medication List Reviewed: Yes Review of Systems Review of Systems Constitutional: see HPI, malaise (pain) Respiratory: No Symptoms Reported; Denies Cough, Denies Shortness of Air Cardiovascular: No Symptoms Reported; Denies Chest Pain, Denies Edema, Denies Irregular Heart Rate, Denies Palpitations, Denies Syncope Gastrointestinal: See HPI; Denies Abdomen Distended; Abdominal Pain; Denies Constipated; Nausea; Denies Vomiting Genitourinary: Denies Burning, Denies Frequency; Flank Pain (right); Denies Hematuria; Pain, Urgency Musculoskeletal: see HPI, back pain; No joint pain Skin: No change in color, No lesions, No pruritus, No rash Past Ulwlvqf-Eicpyu-Fdondk Hx Past Med/Social Hx: Reviewed Nursing Past Med/Soc Hx Patient Social History Alcohol Use: Denies Use Recreational Drug Use: No Smoking Status: Never a Smoker 2nd Hand Smoke Exposure: No Recent Foreign Travel: No Contact w/Someone Who Travel: No Recent Hopitalizations: No Physical Abuse: No Sexual Abuse: No Mistreated: No Fear: No Seasonal Allergies Seasonal Allergies: No Past Medical History Surgeries: Yes Hysterectomy Respiratory: No Cardiac: No 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 oz. kg; 28.00 BMI Method: General Appearance: WD/WN, no apparent distress Respiratory: chest non-tender, lungs clear Cardiovascular: regular rate, rhythm, no edema, no JVD Gastrointestinal: soft, no organomegaly, no pulsatile mass; No distended; guarding; No rebound; tenderness (R flank, RLQ) Extremities: non-tender, normal inspection, no pedal edema Back: normal inspection, no CVA tenderness Skin: normal color, warm/dry Progress/Results/Core Measures Results/Orders My Orders Orders - JOHANNY JOHNSON DO Ketorolac Injection (Toradol Injection) (06/10/20 10:15) Ondansetron Injection (Zofran Injectio (06/10/20 10:15) Ns Iv 1000 Ml (Sodium Chloride 0.9%) (06/10/20 10:15) Ct Abd/Pelvis Wo(Kidney Stone) (06/10/20 10:33) Morphine Injection (Morphine Injection (06/10/20 11:13) Morphine Injection (Morphine Injection (06/10/20 12:23) Medications Given in ED Current Medications Medications Dose Ordered Sig/Temitope Route Start Time Stop Time Status Last Admin Dose Admin Ketorolac Tromethamine 30 mg ONCE ONCE IVP 06/10/20 10:15 06/10/20 10:16 DC 06/10/20 10:21 30 MG Ondansetron HCl 4 mg ONCE ONCE IVP 06/10/20 10:15 06/10/20 10:16 DC 06/10/20 10:21 4 MG Vital Signs/I&O 06/10/20 09:50 Temp 36.3 Pulse 79 Resp 18 B/P (MAP) 113/59 (77) Pulse Ox 100 O2 Delivery Room Air Progress Progress Note : Time: 11:18 Progress Note temporary relief w Toradol, review of CT shows stone R ureter and R hydro. Giving morphine now and considering transfer to Uro services in [place] where pt was previously. Diagnostic Imaging Diagonstic Imaging: CT Comments CORRELATION STUDY: 04/25/2020 FINDINGS: LOWER THORAX: Lung bases clear. Small hiatal hernia. LIVER: Unremarkable on unenhanced imaging. GALLBLADDER: Present and unremarkable. No bile duct dilatation. SPLEEN: Unremarkable. PANCREAS: Unremarkable. ADRENAL GLANDS: Unremarkable. KIDNEYS: There has been interval migration of somewhat lobulated, 7 mm stone. Now positioned in the proximal right ureter. This results in moderate right-sided obstruction with engorgement of the right kidney. The presented distal left ureteral calcification is no longer present and the left kidney and collecting system are unremarkable. ABDOMINAL AORTA: Unremarkable, nonaneurysmal. GASTROINTESTINAL TRACT: Mild severity fecal retention. Normal appendix. No abdominal ascites or free air. URINARY BLADDER: Relatively decompressed but unremarkable. REPRODUCTIVE: Post hysterectomy. OSSEOUS STRUCTURES: No acute abnormality. OTHER: None. IMPRESSION: 1. Prominent, 7 mm stone located in the proximal right ureter results in currently moderate right-sided obstructive uropathy. 2. Resolution of the previous noted distal left ureteral stone and left-sided obstruction. Dictated on workstation # [id number] Dict: 06/10/20 1124 Trans: 06/10/20 1130 [facility] [id number] Interpreted by: VANESSA OTTO DO Electronically signed by: Departure Impression Primary Impression: Abdominal pain Qualified Codes: R10.31 - Right lower quadrant pain Additional Impression: Right renal stone Disposition: XFER SHT-TRM HOSP Condition: Stable Admissions Decision to Admit Reason: Admit from ER (General) Decision to Admit/Date: Jun 10, 2020 Time/Decision to Admit Time: 11:20 Transfer Transfer Reason: Exceeds level of care Time Spoke to Accepting Phy: 11:47 Transfer Progress Notes [place] [facility] [place] recently [place] for U[place] 3 wks ago for a left sided ureteral stone). Saw Uro, Dr Rodarte. Pt requests to go [place] [facility] Spoke to Hospitalist, Dr Rockwell, who accepts for transfer @ [id number]. Pt will go POV, IV pulled. Pain under fair control. VSS. Method of Transfer: EMS Departure-Patient Inst. Referrals: NO,LOCAL PHYSICIAN (PCP) Primary Care Physician ELIZABETH LUNSFORD APRN (Family) Primary Care Physician JOHANNY JHONSON DO Jun 10, 2020 10:12
[2020-06-10] MEDS ORDERED: NS IV 1000 ML 1,000 ML IV SCH (10:15)
[2020-06-10] MEDS ORDERED: ONDANSETRON 4 MG/2 ML (SDV) Z0FRAN IVP ONE (10:15)
[2020-06-10] MEDS ORDERED: KETOROLAC 30 MG/ML VIAL IVP ONE (10:15)
[2020-06-10] MEDS ORDERED: morphine INJ 10 MG/ML 1ML (SYR OR VIAL) IVP STA ×2 (11:13→12:23)
--- NOTE | 2020-06-10 11:31 | Diagnostic Imaging Report ---
PROCEDURE: CT urinary tract, rule out kidney stone. TECHNIQUE: Multiple contiguous axial images were obtained through the abdomen and pelvis without the use of intravenous contrast. Auto Exposure Controls were utilized during the CT exam to meet ALARA standards for radiation dose reduction. INDICATION: Status post stone removal on 05/26/2020 with continued trouble urinating. CORRELATION STUDY: 04/25/2020 FINDINGS: LOWER THORAX: Lung bases clear. Small hiatal hernia. LIVER: Unremarkable on unenhanced imaging. GALLBLADDER: Present and unremarkable. No bile duct dilatation. SPLEEN: Unremarkable. PANCREAS: Unremarkable. ADRENAL GLANDS: Unremarkable. KIDNEYS: There has been interval migration of somewhat lobulated, 7 mm stone. Now positioned in the proximal right ureter. This results in moderate right-sided obstruction with engorgement of the right kidney. The presented distal left ureteral calcification is no longer present and the left kidney and collecting system are unremarkable. ABDOMINAL AORTA: Unremarkable, nonaneurysmal. GASTROINTESTINAL TRACT: Mild severity fecal retention. Normal appendix. No abdominal ascites or free air. URINARY BLADDER: Relatively decompressed but unremarkable. REPRODUCTIVE: Post hysterectomy. OSSEOUS STRUCTURES: No acute abnormality. OTHER: None. IMPRESSION: 1. Prominent, 7 mm stone located in the proximal right ureter results in currently moderate right-sided obstructive uropathy. 2. Resolution of the previous noted distal left ureteral stone and left-sided obstruction. Dictated by: Dictated on workstation # [id number]
[2020-06-10 13:02] VITALS: BP 126/74
--- NOTE | 2020-06-10 13:03 | NUR ---
Pt is going by private vehicle and pt signed Refusal to permit medical examination and/or treatment for refusal to be transferred by medical transport vehicle with medical personnel and equipment in order to safeguard my (patient) condition. Report given to ROB Balderrama. IV removed and set of vital signs taken before wheeling patient to Sister Joaquina's car. Pt discharged at this time.
== END 2020-06-10 13:05 | disposition short-term general hospital (02) ==
LOC: EDUNIT# 09:46 → ER FS 09:47
DX: N13.2 Hydronephrosis with renal and ureteral calculous obstruction (principal)
CPT/HCPCS: 74176